=== PATIENT | female | born 1950 | race Caucasian/White ===

== ENCOUNTER 2022-03-02 09:49 | Outpatient (CLI) | payer MEDICARE, SELFPAY ==
--- NOTE | ~2022-03-02 | CT_ITS ---
EXAMINATION: CT lumbar spine wo con DATE: 03/02/2022 10:31 INDICATION: Low back pain. Lumbar radiculopathy. TECHNIQUE: Computed tomography (CT) of the lumbar spine was performed without intravenous contrast. A utomated exposure control and iterative reconstruction technique were employed. The dose-length produ ct was 1145.79 mGy-cm. COMPARISON: CT lumbar spine 06/24/2017 FINDINGS: There is 17 degrees dextroscoliosis of lumbar spine. There is 5 mm anterolisthesis of L5 on S1. There is mild chronic anterior wedging of T12 vertebral body. There is severely decreased disc h eight at T11-T12, moderately decreased disc height at T12-L1, severely decreased disc height at 1-L2 and L2-L3, mildly decreased disc at L3-L4, and severely decreased disc height at L4-L5 and L5-S1 with endplate remodeling. There is a chronic right L4 pars defects. There is an intrathecal catheter with tip above the superior margin of the scan. The following disc levels are specifically discussed: L1-L2: The disc is bulging. There is mild bilateral facet joint osteoarthritis. There is mild bilater al neural foraminal stenosis. There is mild central canal stenosis. L2-L3: The disc is bulging. There is severe right and mild left facet joint osteoarthritis. There is mild right and moderate left neural foraminal stenosis. There is mild central canal stenosis. L3-L4: The disc is bulging. There is severe bilateral facet joint osteoarthritis. There is moderate r ight and mild left neural foraminal stenosis. There is mild central canal stenosis. L4-L5: The disc is bulging. There is moderate right and severe left facet joint osteoarthritis. There is moderate right and mild left neural foraminal stenosis. There is mild central canal stenosis. L5-S1: The disc is bulging. There is severe bilateral facet joint osteoarthritis. There is moderate a nd mild left neural foraminal stenosis. There is mild central canal stenosis. IMPRESSION: 1. Severe lumbar spondylosis, worsened from 06/24/2017. 2. Chronic right L4 pars defect. 3. Lumbar dextroscoliosis. Reviewed, dictated and finalized at location A. HANDLER
--- NOTE | ~2022-03-02 | MR_ITS ---
EXAMINATION: MR lumbar spine wo/w con DATE: 03/02/2022 12:10 INDICATION: Lumbar radiculopathy TECHNIQUE: Magnetic resonance imaging (MRI) of the lumbar spine was performed without and with 19 mL Multihance intravenous contrast. Sequences included sagittal T2-weighted FSE, sagittal T2-weighted FS FSE, and sagittal and axial T1-weighted FSE. Postcontrast sequences included axial T2-weighted FSE, sagittal T1-weighted FSE, and axial and sagittal T1-weighted FS FSE. COMPARISON: CT dated 07/21/2017 and 03/02/2022 FINDINGS: 20 degrees lumbar dextroscoliosis. 3 mm anterolisthesis L5 on S1. Likely developmental mild midline d epression of the posterior aspect of the superior and inferior endplates of L3. Minimal chronic anter ior wedging at T12. Severe left-sided disc height loss at L1-L2 and L2-L3 and severe right-sided dis c height loss at L4-L5. Moderate disc height loss at T11-T12, T12-L1 and L5-S1. There are associated fibrovascular degenerative endplate changes along many of the region of more severe disc height loss. T1 hyperintense meningiomas at T12 and L2. Chronic right-sided L4 pars intra-articular is defects. O therwise normal marrow signal. The conus medullaris terminates at T12-L1. There is normal signal in t he caudal spinal cord. Subtle increased T1 signal is seen along portions of the course of the intrath ecal catheter at the left side of the central canal which is more clearly visualized on the CT imagin g. There is mild enhancement associated with the severe facet osteoarthritis bilaterally at L5-S1. No other abnormally enhancing lesions identified. Paravertebral soft tissues are unremarkable. The foll owing disc levels are specifically discussed: T12-L1: Disc is mildly bulging. There is mild left and moderate right facet joint osteoarthritis. The re is no neural foraminal stenosis. There is minimal central canal stenosis. L1-L2: Disc is bulging with annular fissure. There is mild bilateral facet joint osteoarthritis. Ther e is mild right and moderate left neural foraminal stenosis. There is mild central canal stenosis. L2-L3: Disc is bulging with annular fissure and superimposed right paracentral disc protrusion. There is severe right and moderate left facet joint osteoarthritis. There is moderate left and mild to mod erate right neural foraminal stenosis. There is mild central canal stenosis along with narrowing of t he right lateral recess. L3-L4: Bulging with annular fissure. There is severe bilateral facet joint osteoarthritis. There is m oderate bilateral neural foraminal stenosis. There is mild to moderate central canal stenosis. L4-L5: Disc is bulging with superimposed annular fissure and right foraminal zone disc protrusion. Th ere is severe bilateral facet joint osteoarthritis. There is moderate to severe right and mild left n eural foraminal stenosis. There is mild central canal stenosis. L5-S1: Annular fissure and base disc extrusion extending from foraminal zone to foraminal zone with d isc material extending cephalad to the inferior endplate of L5 most prominent in the left paracentral region. Extends 1.4 cm cephalad to the level of the inferior endplate of L5 and measuring up to 9 mm left to right and 6 mm AP at the level of the cephalad aspect of the left neural foramen. There is s evere bilateral facet joint osteoarthritis. There is fluid measuring 2-3 mm AP the articul ar surface of the bilateral facet joints which likely accounts for the similar amount of decreased an terolisthesis in the current study relative to the prior CT images were the anterolisthesis measures approximately 5 mm. There is moderate to severe bilateral neural foraminal stenosis greatest at the l ateral aspects of the neural foramina. There is mild central canal stenosis. IMPRESSION: 1. 20 degrees lumbar dextroscoliosis with severe spondylosis. 2. Grade 1 anterolisthesis of L5 on S1
== END 2022-03-02 09:50 | disposition home or self-care (01) ==
PROVIDERS: PCP Family Medicine; Visit Provider Physician Assistant
DX: M47.26 Other spondylosis with radiculopathy, lumbar region (principal); Z98.890 Other specified postprocedural states
CPT/HCPCS: 72131; 72158; A9577

== ENCOUNTER 2022-03-30 09:07 | Outpatient (CLI) | payer MEDICARE, SELFPAY ==
--- NOTE | 2022-03-30 11:00 | NEURO_ITS ---
Impression: # Complains of lower back and right lower extremity pain. # Normal nerve conduction study including motor and sensory nerves and F- waves. # Normal needle/EMG exam with no fibs or myotonia. # Clinical correlation recommended. Motor Nerve Conduction Lower Extremities Peroneal Nerve Conduction Velocity (m/sec) Terminal Latency (msec) Response Voltage(mV) Popliteal space-Ankle Ankle Extensor Dig Brevis Popliteal space Ankle Right 43 4.0 1 1 Left 43 4.2 1 2 Tibial Nerve Conduction Velocity (m/sec) Terminal Latency (msec) Response Voltage(mV) Popliteal space-Ankle Ankle-Extensor Dig Brevis Popliteal space Ankle Right 43 4.6 3 3 Left 43 4.7 1 3 F-waves Peroneal Nerve (ms) Tibial Nerve (ms) Right 54.8 55.2 Left 55.9 54.9 Sensory Nerve Conduction Lower Extremities Sural Nerve Stimulation Terminal Latency (msec) Ankle Response Voltage (uV) Ankle Response Velocity (m/sec) Right 4.2 4 38 Left 4.0 4 40 Superficial Peroneal Nerve Stimulation Terminal Latency (msec) Ankle Response Voltage (uV) Ankle Response Velocity (m/sec) Right 3.4 13 47 Left 3.5 10 46 Left Right Muscles Examined Fibrillation Fasciculation Scarcity Voltage Duration Left Right Left Right Left Right Left Right Left Right X X Ant Tibialis X X Gastroc X X Fibularis Long X X Flex Dig Long X X Ext Dig Brev Abd Hallucis Quadriceps Paraspinals MTDD
== END 2022-03-30 09:08 | disposition home or self-care (01) ==
LOC: ANHNEURO 09:09
PROVIDERS: PCP Family Medicine; Visit Provider Physician Assistant
DX: M47.816 Spondylosis without myelopathy or radiculopathy, lumbar region (principal); Z98.890 Other specified postprocedural states
CPT/HCPCS: 95886; 95910

== ENCOUNTER 2023-03-30 09:01 | Outpatient (CLI) | payer MEDICARE, SELFPAY | END 2023-03-30 09:02 | disposition home or self-care (01) | PROVIDERS: PCP Family Medicine; Visit Provider Family Medicine | DX: E11.9 Type 2 diabetes mellitus without complications (principal) | CPT/HCPCS: 99199 ==